=== PATIENT | female | born 1930 | race Caucasian/White ===

== ENCOUNTER → 2016-08-10 | Outpatient (CLI) | payer OTHER, MEDICARE, BC ==
[~2016-08-10] MED LIST: ANALGESIC BALM30 GM TP; ATIVAN-DPS0.5 MG PO; COLACE-DPS100 MG PO; DUONEB DPS3 ML IH; LASIX DPS20 MG PO; LIDODERM PATC1 PATCH TP; MYCOSTATIN PWD15 GM TP; NEURONTIN DPS300 MG PO; PEPCID DPS20 MG PO; SPORTS CREAM85 GM TP; SYNTHROID DP0.088 MG PO; TEARS NATURAL D15 ML OU; TYLENOL EXTRA500 M1 PO; ULTRAM DPS50 MG PO; VASOTEC DPS2.5 MG PO; ZOFRAN DPS8 MG PO
== END | disposition home or self-care (01) ==
LOC: RAD.S 13:14
DX: M79.89 Other specified soft tissue disorders (principal); I82.402 Acute embolism and thrombosis of unspecified deep veins of left lower extremity